=== PATIENT | female | born 1930 | race Caucasian/White ===

== ENCOUNTER 2017-01-19 12:46 | Outpatient (CLI) | payer MEDICARE | END 2017-01-19 12:47 | disposition home or self-care (01) | DX: I10 Essential (primary) hypertension (principal); E78.5 Hyperlipidemia, unspecified ==

== ENCOUNTER 2017-06-02 11:44 | Outpatient (CLI) | payer MEDICARE ==
--- NOTE | 2017-06-02 18:19 | XRAY Report ---
TWO VIEW CHEST: 06/02/2017 CLINICAL INDICATION: Cough. Frontal and lateral views of the chest are compared to previous film of 07/11/2010. The cardiac silhouette is at the upper limits of normal. The lungs are hyperinflated, compatible wit h COPD, with linear scarring or atelectasis at the bases. No effusion or pneumothorax is present. IMPRESSION: COPD, WITH LINEAR SCARRING OR ATELECTASIS AT THE BASES. JOB #: [id number] EXT JOB #:[id number]
== END 2017-06-02 11:45 | disposition home or self-care (01) ==
LOC: DI 11:44
PROVIDERS: ATTEND Family Medicine
DX: R05 Cough (principal); J44.9 Chronic obstructive pulmonary disease, unspecified
CPT/HCPCS: 71020

== ENCOUNTER 2017-11-05 08:00 | Outpatient (CLI) | payer MEDICARE ==
[2017-11-05 19:04] LABS: HGB - HEMOGLOBIN 13.9 g/dL (12.0-16.0); MEAN CORPUSCULAR HEMOGLOBIN 30.6 pg (27.0-31.0); MEAN CORPUSCULAR HGB CONC 32.8 g/dL (32.0-36.0); MEAN CORPUSCULAR VOLUME 93.3 fL (81.0-99.0); MEAN PLATELET VOLUME 7.8 fL (7.9-10.8); RED BLOOD COUNT 4.52 10^6/uL (4.20-5.40); WHITE BLOOD COUNT 7.3 x10^3/uL (4.8-10.8)
[2017-11-05 19:24] LABS: CALCIUM 9.1 mg/dL (8.5-10.3); CREATININE 0.9 mg/dL (0.4-1.0)
== END 2017-11-05 08:01 | disposition home or self-care (01) ==
LOC: LAB.WCP 08:00
PROVIDERS: ATTEND Family Medicine
DX: R06.02 Shortness of breath (principal)
CPT/HCPCS: 36415; 80048; 83880; 85025

== ENCOUNTER 2017-11-18 08:25 | Outpatient (CLI) | payer MEDICARE | END 2017-11-18 08:26 | disposition home or self-care (01) | LOC: DI 08:25 | PROVIDERS: ATTEND Family Medicine | DX: R06.02 Shortness of breath (principal); I51.7 Cardiomegaly | CPT/HCPCS: 93306 ==

== ENCOUNTER 2018-02-23 08:00 | Outpatient (CLI) | payer MEDICARE ==
[2018-02-23 19:05] LABS: BASOPHILS % (AUTO) 0.4 %; EOSINOPHILS # (AUTO) 0.3 10^3/uL (0.0-0.7); EOSINOPHILS % (AUTO) 4.9 %; HGB - HEMOGLOBIN 13.7 g/dL (12.0-16.0); LYMPHOCYTES # (AUTO) 2.9 10^3/uL (1.5-3.5); LYMPHOCYTES % (AUTO) 42.4 %; MEAN CORPUSCULAR HGB CONC 32.9 g/dL (32.0-36.0); MEAN CORPUSCULAR VOLUME 91.1 fL (81.0-99.0); MEAN PLATELET VOLUME 7.7 fL (7.9-10.8); MONOCYTES # (AUTO) 0.7 10^3/uL (0.0-1.0); MONOCYTES % (AUTO) 9.6 %; NEUTROPHILS % (AUTO) 42.7 %; PLT - PLATELET COUNT 282 10^3/uL (130-450); RED BLOOD COUNT 4.57 10^6/uL (4.20-5.40); RED CELL DISTRIBUTION WIDTH 13.9 % (12.0-15.0); WHITE BLOOD COUNT 6.9 x10^3/uL (4.8-10.8)
[2018-02-23 19:30] LABS: ALBUMIN 3.8 g/dL (3.2-5.5); ALBUMIN/GLOBULIN RATIO 1.2 (1.0-2.2); ALKALINE PHOSPHATASE 55 IU/L (42-121); ALT ALANINE AMINOTRANSFERASE 15 IU/L (10-60); AST ASPARTATE AMINOTRANSFERASE 21 IU/L (10-42); BILIRUBIN,TOTAL 0.8 mg/dL (0.2-1.0); BUN - BLOOD UREA NITROGEN 20 mg/dL (6-20); CALCIUM 9.3 mg/dL (8.5-10.3); CARBON DIOXIDE - CO2 27 mmol/L (21-32); CHLORIDE 103 mmol/L (101-111); CHOL/HDL RATIO 5.4 (<4.4); CHOLESTEROL 228 mg/dL; CREATININE 0.8 mg/dL (0.4-1.0); GFR - MDRD 68 (>89); GLUCOSE 88 mg/dL (70-100); HDL CHOLESTEROL 42 mg/dL; LDL CHOLESTEROL,CALCULATED 145 mg/dL; LDL/HDL RATIO 3.5 (<4.4); SODIUM 138 mmol/L (135-145); TOTAL PROTEIN 7.1 g/dL (6.7-8.2); VLDL CHOLESTEROL 41 mg/dL
== END 2018-02-23 08:01 | disposition home or self-care (01) ==
LOC: LAB.WCP 08:00
PROVIDERS: ATTEND Family Medicine
DX: I10 Essential (primary) hypertension (principal); E78.5 Hyperlipidemia, unspecified
CPT/HCPCS: 36415; 80053; 80061; 83721; 85025

== ENCOUNTER 2018-04-15 08:04 | Emergency (ER) | payer MEDICARE ==
--- NOTE | 2018-04-15 09:42 | ED Physician Documentation ---
PD HPI TRUNK INJURY - Stated complaint Stated Complaint: PX UNDER RT BREAST - Chief complaint Chief Complaint: General - History obtained from History obtained from: Patient, Family - History of Present Illness Location: Anterior chest, Right chest Type of injury: Fall Timing - onset: How many days ago (5) Timing - duration: Days (5) Timing - details: Gradual onset, Still present Quality: Pain, Spasm, Sharp Improved by: Rest, Immobilization Worsened by: Moving, Palpating Associated symtptoms: No: Weakness, Numbness, Tingling, Swelling Where injury occured: Home Similar symptoms before: Has not had sx before Recently seen: Not recently seen - Additional information Additional information: 87-year-old female fell out of her bed 5 days ago and landed on her right side. She complains of some pain to her right chest under her right breast that is worse with movement and palpation. She does not have shortness of breath and she has not had nausea vomiting or fever. She is uncertain why she fell out of bed but does know that it was in the middle of the night she was likely getting up to go to the bathroom and she required help to get up from the floor.She states that she did not feel sick prior to this and still does not feel sick or ill she just has this pain in the right side of her chest. Review of Systems Constitutional: denies: Fever Eyes: denies: Decreased vision Ears: denies: Ear pain Nose: denies: Congestion Throat: denies: Sore throat Cardiac: reports: Chest pain / pressure. denies: Palpitations Respiratory: denies: Dyspnea, Cough GI: denies: Abdominal Pain, Nausea, Vomiting : denies: Dysuria, Frequency PD PAST MEDICAL HISTORY - Past Medical History Past Medical History: Yes Cardiovascular: High cholesterol - Past Surgical History Past Surgical History: Yes Cardiovascular: Coronary stent - Present Medications Home Medications: Ambulatory Orders Medication Instructions Recorded Confirmed Aspirin [Aspir-Low] 1 tab PO DAILY 10/21/15 10/21/15 Simvastatin 40 mg PO DAILY 10/21/15 10/21/15 HYDROcod/ACETAM 5/325 [Imperial 5/325] 1 - 2 ea PO Q6H PRN #15 tablet 04/15/18 - Allergies Allergies/Adverse Reactions: Allergies Allergy/AdvReac Type Severity Reaction Status Date / Time No Known Drug Allergies Allergy Verified 07/12/18 08:49 - Social History Does the pt smoke?: No Smoking Status: Never smoker Does the pt drink ETOH?: No Does the pt have substance abuse?: No - Immunizations Immunizations are current?: No - POLST Patient has POLST: No PD ED PE NORMAL - Vitals Vital signs reviewed: Yes (hypertensive ) - General General: No acute distress, Well developed/nourished - HEENT HEENT: Atraumatic, PERRL, EOMI - Neck Neck: Supple, no meningeal sign - Cardiac Cardiac: RRR, No murmur - Respiratory Respiratory: No respiratory distress, Clear bilaterally, Other (there is point tenderness to the right chest under the right breast with palpation of the right lower chest wall. ) - Abdomen Abdomen: Soft, Non tender - Back Back: No CVA TTP, No spinal TTP - Derm Derm: Normal color, Warm and dry, No rash - Extremities Extremities: No deformity, No edema - Neuro Neuro: steward/stewardess 2-12 intact, No motor deficit, No sensory deficit, Normal speech Eye Opening: Spontaneous Motor: Obeys Commands Verbal: Oriented GCS Score: 15 - Psych Psych: Normal mood, Normal affect Results - Vitals Vitals: Vital Signs - 24 hr 04/15/18 08:35 Temperature 36.2 C L Heart Rate 66 Respiratory 18 Rate Blood Pressure 176/72 H O2 Saturation 100 Oxygen O2 Source Room air - Labs Labs: Laboratory Tests 04/15/18 12:24 Urine Color YELLOW Urine Clarity CLEAR Urine pH 6.5 Ur Specific Vestal <=1.005 Urine Protein NEGATIVE Urine Glucose (UA) NEGATIVE Urine Ketones NEGATIVE Urine Occult Blood NEGATIVE Urine Nitrite NEGATIVE Urine Bilirubin NEGATIVE Urine Urobilinogen 0.2 (NORMAL) Ur Leukocyte Esterase NEGATIVE Ur Microscopic Review NOT INDICATED Urine Culture Comments NOT INDICATED - Rads (name of study) ribs with PA chest R Radiology: Prelim report reviewed (Impression: Technique is not optimal for evaluation of mid and lower right ribs no displaced fracture demonstrated on the images obtained. No hemothorax, pneumothorax or other acute cardiopulmonary abnormality.), EMP read indepedently, See rad report PD MEDICAL DECISION MAKING - ED course Complexity details: reviewed results, re-evaluated patient, considered differential, d/w patient, d/w family ED course: 87-year-old female with predictable right sided chest pain after chest wall contusion is administered dexamethasone orally. - Sepsis Event Vital Signs: Vital Signs - 24 hr 04/15/18 08:35 Temperature 36.2 C L Heart Rate 66 Respiratory 18 Rate Blood Pressure 176/72 H O2 Saturation 100 Oxygen O2 Source Room air Departure - Departure Disposition: 01 Home, Self Care Clinical Impression: Chest wall contusion Qualifiers: Encounter type: initial encounter Laterality: right Qualified Code(s): S20.211A - Contusion of right front wall of thorax, initial encounter Condition: Stable Instructions: ED Contusion Chest Wall, ED Contusion Rib Follow-Up: Jo Nagel DO [Primary Care Provider] - Prescriptions: HYDROcod/ACETAM 5/325 [Imperial 5/325] 1 - 2 ea PO Q6H PRN #15 tablet PRN Reason: Pain
--- NOTE | 2018-04-15 09:50 | XRAY Report ---
Procedure Date: 04/15/2018 Accession Number: [id number] / [id number] Procedure: XR - Ribs w/PA Chest RT CPT Code: FULL RESULT: EXAM: RIGHT RIB RADIOGRAPHY 3 VIEWS EXAM DATE: 04/15/2018. CLINICAL HISTORY: Fell. Right rib pain. COMPARISON: Chest radiography on 07/07/2017.. TECHNIQUE: PA view of the chest and shallow and steep oblique views of the right ribs. FINDINGS: Bones: Technique is not optimal for visualization of the mid and lower right ribs. No displaced fracture demonstrated. Chronic rotator cuff tear of both shoulders. Degenerative changes of the spine. Lungs: Normal vasculature. Pulmonary and pleural scarring in the left lower chest is unchanged. No acute pulmonary abnormality. No pleural fluid or pneumothorax. Mediastinum: Normal cardiac and mediastinal contours. Coronary artery stents. Other: Cholecystectomy clips in the right upper abdomen. IMPRESSION: Technique is not optimal for evaluation of mid and lower right ribs. No displaced fracture demonstrated on the images obtained. No hemothorax, pneumothorax, or other acute cardiopulmonary abnormality. [facility]
[2018-04-15] MEDS ORDERED: DEXAMETHASONE 10 MG/ML VIAL PO STA (10:01)
[2018-04-15] MEDS ORDERED: CHERRY SYRUP 10 ML UDC PO ONE (10:51)
[2018-04-15 12:36] LABS: BILIRUBIN,URINE NEGATIVE (NEGATIVE); GLUCOSE, URINE (UA) NEGATIVE (NEGATIVE); KETONES,URINE (UA) NEGATIVE (NEGATIVE); LEUKOCYTE ESTERASE, URINE NEGATIVE (NEGATIVE); NITRITE,URINE NEGATIVE (NEGATIVE); OCCULT BLOOD,URINE NEGATIVE (NEGATIVE); PH,URINE 6.5 PH (5.0-7.5); PROTEIN,URINE NEGATIVE (NEGATIVE); UROBILINOGEN,URINE 0.2 (NORMAL) E.U./dL (NORMAL)
[2018-04-15 12:38] LABS: CLARITY,URINE CLEAR (CLEAR)
[2018-04-15 12:59] VITALS: BP 150/96
== END 2018-04-15 13:17 | disposition home or self-care (01) ==
LOC: ED 08:04
DX: S20.211A Contusion of right front wall of thorax, initial encounter (principal); W06.XXXA Fall from bed, initial encounter; Y92.003 Bedroom of unspecified non-institutional (private) residence as the place of occurrence of the external cause
CPT/HCPCS: 71101; 81003; 99282; 99283; A9270; 81001; 87086

== ENCOUNTER 2018-05-20 10:01 | Outpatient (CLI) | payer MEDICARE ==
[2018-05-20 10:47] LABS: BASOPHILS % (AUTO) 0.6 %; EOSINOPHILS # (AUTO) 0.4 10^3/uL (0.0-0.7); EOSINOPHILS % (AUTO) 6.1 %; HGB - HEMOGLOBIN 13.7 g/dL (12.0-16.0); LYMPHOCYTES # (AUTO) 3.3 10^3/uL (1.5-3.5); LYMPHOCYTES % (AUTO) 44.8 %; MEAN CORPUSCULAR HEMOGLOBIN 31.2 pg (27.0-31.0); MEAN CORPUSCULAR HGB CONC 33.6 g/dL (32.0-36.0); MEAN PLATELET VOLUME 7.8 fL (7.9-10.8); MONOCYTES # (AUTO) 0.7 10^3/uL (0.0-1.0); MONOCYTES % (AUTO) 9.1 %; NEUTROPHILS # (AUTO) 2.9 10^3/uL (1.5-6.6); NEUTROPHILS % (AUTO) 39.4 %; PLT - PLATELET COUNT 271 10^3/uL (130-450); RED BLOOD COUNT 4.37 10^6/uL (4.20-5.40); RED CELL DISTRIBUTION WIDTH 14.9 % (12.0-15.0); WHITE BLOOD COUNT 7.3 x10^3/uL (4.8-10.8)
[2018-05-20 11:22] LABS: ALBUMIN/GLOBULIN RATIO 1.2 (1.0-2.2); ALKALINE PHOSPHATASE 58 IU/L (42-121); ALT ALANINE AMINOTRANSFERASE 20 IU/L (10-60); AST ASPARTATE AMINOTRANSFERASE 26 IU/L (10-42); BILIRUBIN,TOTAL 0.5 mg/dL (0.2-1.0); BUN - BLOOD UREA NITROGEN 22 mg/dL (6-20); CALCIUM 9.3 mg/dL (8.5-10.3); CARBON DIOXIDE - CO2 25 mmol/L (21-32); CHLORIDE 106 mmol/L (101-111); CHOL/HDL RATIO 3.2 (<4.4); CHOLESTEROL 156 mg/dL; CREATININE 0.9 mg/dL (0.4-1.0); GFR - MDRD 59 (>89); GLUCOSE 91 mg/dL (70-100); HDL CHOLESTEROL 49 mg/dL; LDL CHOLESTEROL,CALCULATED 87 mg/dL; LDL/HDL RATIO 1.8 (<4.4); SODIUM 137 mmol/L (135-145); TOTAL PROTEIN 7.3 g/dL (6.7-8.2); VLDL CHOLESTEROL 20 mg/dL
== END 2018-05-20 10:02 | disposition home or self-care (01) ==
LOC: LAB 10:01
PROVIDERS: ATTEND Family Medicine
DX: E78.5 Hyperlipidemia, unspecified (principal); I10 Essential (primary) hypertension
CPT/HCPCS: 36415; 80053; 80061; 83721; 85025